=== PATIENT | female | born 1945 | race Caucasian/White ===

== ENCOUNTER → 2017-11-30 | Outpatient (CLI) | payer MEDICARE, BC ==
[~2017-11-30] MED LIST: ALEVE 220MG220 MG PO; CEPHALEXIN500 M1 PO; ULTRAM 50MG TAB50 MG PO; ZESTRIL 10MG10 MG PO; ZOCOR 40MG40 MG PO
[2017-11-30 16:30] LABS: BASO # 0.1 (0.0-0.2); BASO % 0.7 % (0.0-2.0); EOS # 0.2 (0.0-0.7); EOS % 3.1 % (0-4.0); GRAN # 4.4 (1.4-6.5); GRAN % 60.3 % (42.2-75.2); HEMATOCRIT 41.9 % (37.0-47.0); HEMOGLOBIN 13.7 g/dl (12.5-16.0); LYMPH % 27.2 % (20.0-51.0); MEAN CELL VOLUME 86 fl (80.0-100.0); MEAN CORPUSCULAR HEMOGLOBIN 28 pg (27.0-31.0); MEAN CORPUSCULAR HGB CONC 33 g/dl (33.0-37.0); MEAN PLATELET VOLUME 9.3 fl (7.4-10.4); MONO # 0.6 (0.1-0.6); MONO % 8.4 % (1.7-9.3); PLATELET COUNT 235 K/mm3 (130-400); RED BLOOD COUNT 4.86 M/mm3 (4.10-5.30); REDCELL DISTRIBUTION WIDTH-CV 13.9 % (11.5-14.5)
== END ==
LOC: COL.LAB 16:03
PROVIDERS: Internal Medicine
DX: L03.116 Cellulitis of left lower limb (principal); S99.922A Unspecified injury of left foot, initial encounter

== ENCOUNTER → 2018-01-22 | Outpatient (CLI) | payer MEDICARE, BC | LOC: MC.RAD 09:20 | DX: Z12.31 Encounter for screening mammogram for malignant neoplasm of breast (principal); N63.21 Unspecified lump in the left breast, upper outer quadrant ==

== ENCOUNTER → 2018-01-25 | Outpatient (CLI) | payer MEDICARE, BC | LOC: MC.RAD 10:43 | DX: N63.21 Unspecified lump in the left breast, upper outer quadrant (principal) ==

== ENCOUNTER → 2018-01-30 | Outpatient (CLI) | payer MEDICARE, BC | LOC: MC.RAD 09:45 | DX: C50.912 Malignant neoplasm of unspecified site of left female breast (principal) ==

== ENCOUNTER → 2018-02-08 | Outpatient (CLI) | payer MEDICARE, BC | LOC: MC.RAD 09:25 | DX: C50.412 Malignant neoplasm of upper-outer quadrant of left female breast (principal) ==

== ENCOUNTER 2018-02-27 06:44 | Day surgery (SDC) | payer MEDICARE, BC ==
[~2018-02-27] VITALS: Ht 154.9 cm; Wt 105.3 kg
[2018-02-27] VITALS (10 sets, daily range): BP systolic 98–147; BP diastolic 58–77; PULSE 78–93; TEMP 97.8–98.4
[2018-02-27] MEDS ORDERED: MOBIC15 MG PO (08:59)
[2018-02-27] MEDS ORDERED: PRINIVIL10 MG PO (08:59)
[2018-02-27] MEDS ORDERED: ZOCOR 40MG40 MG PO (09:00)
[2018-02-27] MEDS ORDERED: VITAMIN D31000 I1 PO (09:01)
[2018-02-27] MEDS ORDERED: JOINT FLEX PO (09:02)
[2018-02-27] MEDS ORDERED: NATURE'S BLE1000 MCG PO (09:02)
[2018-02-27] MEDS ORDERED: ADVIL200 MG PO (09:03)
[2018-02-27] MEDS ORDERED: B COMPLEX #11 TAB PO (09:03)
[2018-02-27] MEDS ORDERED: TYLENOL 325MG325 MG PO (09:04)
[2018-02-27] MEDS ORDERED: PEPCID 20MG TAB20 MG PO (09:04)
[2018-02-28 04:48] VITALS: BP 114/66; PULSE 76; TEMP 97.6
[2018-02-28 08:24] VITALS: BP 123/66; PULSE 80; TEMP 97.8
[2018-02-28] MEDS ORDERED: NORCO 325 MG-51 TAB PO (11:15)
== END 2018-02-28 11:55 | disposition home or self-care (01) ==
LOC: SDCO 06:44 → SURG 15:50 → SDCO 02-28 11:55
DX: C50.412 Malignant neoplasm of upper-outer quadrant of left female breast (principal); I10 Essential (primary) hypertension; E66.01 Morbid (severe) obesity due to excess calories; Z68.41 Body mass index [BMI] 40.0-44.9, adult; Z79.899 Other long term (current) drug therapy; G89.29 Other chronic pain; K21.9 Gastro-esophageal reflux disease without esophagitis; Z17.1 Estrogen receptor negative status [ER-]; E78.00 Pure hypercholesterolemia, unspecified
CPT/HCPCS: OP; A9541; C1788; J0690; J1100; J1170; J1644; J1885; J2250; J2405; J2704; J2765; J2795; J3010; J7120; Q9968

== ENCOUNTER 2018-03-13 08:51 | Day surgery (SDC) | payer MEDICARE, BC ==
[~2018-03-13] VITALS: Ht 154.9 cm; Wt 106.8 kg
[2018-03-13] VITALS (7 sets, daily range): BP systolic 121–148; BP diastolic 65–77; PULSE 72–78; TEMP 97.2–98.2
[~2018-03-13 08:51] MED LIST changes: +ADVIL200 MG PO; +B COMPLEX #11 TAB PO; +BIOTIN2500 MCG PO; +CENTRUM SILVER1 TAB PO; +MASON NATURAL2000 IU PO; +MOBIC15 MG PO; +NORCO 325 MG-51 TAB PO; +PEPCID 20MG TAB20 MG PO; +PRINIVIL10 MG PO; +TYLENOL 500MG500 MG PO
[2018-03-13] MEDS ORDERED: OSTEO-BI-FLEX 21 TAB PO (09:27)
== END 2018-03-13 14:40 | disposition home or self-care (01) ==
LOC: SDCO 08:51
DX: C50.412 Malignant neoplasm of upper-outer quadrant of left female breast (principal); Z17.1 Estrogen receptor negative status [ER-]; I10 Essential (primary) hypertension; E78.00 Pure hypercholesterolemia, unspecified; K58.0 Irritable bowel syndrome with diarrhea; M19.90 Unspecified osteoarthritis, unspecified site; G89.29 Other chronic pain; K21.9 Gastro-esophageal reflux disease without esophagitis; Z90.49 Acquired absence of other specified parts of digestive tract; Z90.710 Acquired absence of both cervix and uterus; Z90.12 Acquired absence of left breast and nipple; Z88.5 Allergy status to narcotic agent; Z88.6 Allergy status to analgesic agent
CPT/HCPCS: J0690; J1100; J2405; J2704; J3010; J7120

== ENCOUNTER 2018-07-17 15:37 | Emergency (ER) | payer MEDICARE, BC ==
[~2018-07-17] VITALS: Ht 154.9 cm; Wt 93.5 kg
[~2018-07-17 15:37] MED LIST changes: +OSTEO-BI-FLEX 21 TAB PO
[2018-07-17 15:43] VITALS: TEMP 97.8
[2018-07-17 16:24] LABS: HEMOGLOBIN 10.7 g/dl (12.5-16.0); MEAN CELL VOLUME 89 fl (80.0-100.0); MEAN CORPUSCULAR HEMOGLOBIN 29 pg (27.0-31.0); MEAN CORPUSCULAR HGB CONC 33 g/dl (33.0-37.0); MEAN PLATELET VOLUME 10.6 fl (7.4-10.4); PLATELET COUNT 231 K/mm3 (130-400); REDCELL DISTRIBUTION WIDTH-CV 16.8 % (11.5-14.5)
[2018-07-17 16:33] LABS: HEMATOCRIT 32.9 % (37.0-47.0)
[2018-07-17 16:38] LABS: ALANINE AMINOTRANSFERASE 32 U/L (9-52); ALKALINE PHOSPHATASE 108 U/L (50-136); ANION GAP 12 mmol/L (7-16); AST,SGOT 19 U/L (15-37); BILIRUBIN,TOTAL 0.5 mg/dL (0.0-1.0); BLOOD UREA NITROGEN 34 mg/dL (7-17); CALCIUM 8.8 mg/dL (8.4-10.2); CARBON DIOXIDE 25 mmol/L (22-30); CHLORIDE 91 mmol/L (98-107); CREATININE, serum 1.62 mg/dL (0.52-1.25); GLUCOSE 125 mg/dL (74-106); POTASSIUM 4.3 mmol/L (3.4-5.0); SODIUM 128 mmol/L (137-145); TOTAL PROTEIN 5.9 gm/dL (6.4-8.2)
[2018-07-17 16:45] LABS: BAND 26 % (0-10); LYMPHOCYTE 10 % (20.0-51.0); NEUTROPHILS 62 % (42.0-75.2)
[2018-07-17 16:46] LABS: PLATELET ESTIMATE NORMAL (NORMAL); TROPONIN-I < 0.012 ng/mL (0.000-0.035)
[2018-07-17 16:47] LABS: ANISOCYTOSIS 1+
[2018-07-17 16:48] LABS: MICROCYTOSIS 1+
[2018-07-17] MEDS ORDERED: TYLENOL 325MG325 MG PO (16:49)
[2018-07-17] MEDS ORDERED: BALANCE B-1001 TA1 (16:50)
[2018-07-17 16:51] LABS: STOMATOCYTE 1+; TEAR DROP CELLS 1+
[2018-07-17] MEDS ORDERED: NATURE'S BLE1000 MCG PO (16:54)
[2018-07-17] MEDS ORDERED: TUMS500 MG (16:57)
[2018-07-17] MEDS ORDERED: DECADRON 4MG TAB4 MG PO (17:09)
[2018-07-17] MEDS ORDERED: LOMOTIL 0.025 M1 TAB PO (17:10)
[2018-07-17] MEDS ORDERED: PEPCID 20MG TAB20 MG PO (17:11)
[2018-07-17] MEDS ORDERED: MELATONIN3 MG PO (17:12)
[2018-07-17] MEDS ORDERED: ZANTAC 150MG T150 MG PO (17:13)
[2018-07-17] MEDS ORDERED: OSTEO-BI-FLEX 21 TAB PO (17:13)
[2018-07-17] MEDS ORDERED: ZOFRAN8 MG PO (17:13)
[2018-07-17] MEDS ORDERED: TRIAMCINOLONE A15 GM TP (17:14)
[2018-07-17] MEDS ORDERED: AMBIEN 5MG TABLE5 MG PO (17:15)
[2018-07-17] MEDS ORDERED: CLARITIN 1010 MG/TAB PO (17:16)
[2018-07-17 18:00] VITALS: BP 94/58; PULSE 88
[2018-07-17 18:17] LABS: COLLECTION METHOD CLEAN CATCH
[2018-07-17 18:34] LABS: MUCOUS Present /lpf; PH 6 (5-8); URINE APPEARANCE Cloudy; URINE BACTERIA None Seen /hpf; URINE BILIRUBIN Negative (NEGATIVE); URINE BLOOD Negative (NEGATIVE); URINE COLOR Yellow; URINE GLUCOSE Negative (NEGATIVE); URINE KETONE Negative (NEGATIVE); URINE LEUKOCYTE ESTERASE Negative (NEGATIVE); URINE NITRATE Negative (NEGATIVE); URINE PROTEIN(semi-quant) Negative (NEGATIVE); URINE RBC 0-2 /hpf; URINE UROBILINOGEN Negative (NEGATIVE)
== END 2018-07-17 18:26 | disposition short-term general hospital (02) ==
LOC: COL.ER 15:37
PROVIDERS: Emergency Medicine
DX: I95.9 Hypotension, unspecified (principal); R19.7 Diarrhea, unspecified; N19 Unspecified kidney failure; E86.0 Dehydration; I10 Essential (primary) hypertension; E78.00 Pure hypercholesterolemia, unspecified; C50.919 Malignant neoplasm of unspecified site of unspecified female breast
CPT/HCPCS: J1956; J2405; J7030

== ENCOUNTER → 2019-01-31 | Outpatient (CLI) | payer MEDICARE, BC ==
[~2019-01-31] MED LIST changes: +AMBIEN 5MG TABLE5 MG PO; +BALANCE B-1001 TA1; +CLARITIN 1010 MG/TAB PO; +DECADRON 4MG TAB4 MG PO; +ELIQUIS 5MG PO; +FIRVANQ50 MG/1 ML PO; +FLONASE NASAL S16 GM NS; +LOMOTIL 0.025 M1 TAB PO; +MELATONIN3 MG PO; +NATURE'S BLE1000 MCG PO; +TRIAMCINOLONE A15 GM TP; +TUMS500 MG; +TYLENOL 325MG325 MG PO; +ZANTAC 150MG T150 MG PO; +ZOFRAN8 MG PO
== END ==
LOC: MC.RAD 11:14
DX: N60.02 Solitary cyst of left breast (principal); Z98.890 Other specified postprocedural states; Z85.3 Personal history of malignant neoplasm of breast
CPT/HCPCS: G0279

== ENCOUNTER → 2019-02-01 | Outpatient (CLI) | payer MEDICARE, BC | LOC: MC.RAD 11:02 | DX: N60.02 Solitary cyst of left breast (principal); Z98.82 Breast implant status ==

== ENCOUNTER → 2019-07-19 | Outpatient (CLI) | payer MEDICARE, BC | LOC: MC.RAD 10:18 | DX: Z08 Encounter for follow-up examination after completed treatment for malignant neoplasm (principal); Z92.3 Personal history of irradiation; Z85.3 Personal history of malignant neoplasm of breast; Z98.890 Other specified postprocedural states | CPT/HCPCS: G0279 ==

== ENCOUNTER → 2020-02-03 | Outpatient (CLI) | payer MEDICARE, BC | LOC: MC.RAD 09:52 | DX: Z12.31 Encounter for screening mammogram for malignant neoplasm of breast (principal); C50.412 Malignant neoplasm of upper-outer quadrant of left female breast ==

== ENCOUNTER → 2021-03-23 | Outpatient (CLI) | payer MEDICARE, BC | LOC: MC.RAD 02-03 11:30 | DX: Z12.31 Encounter for screening mammogram for malignant neoplasm of breast (principal); C50.412 Malignant neoplasm of upper-outer quadrant of left female breast ==

== ENCOUNTER → 2023-11-21 | Outpatient (CLI) | payer MEDICARE, BC | LOC: MC.RAD 14:00 | DX: Z12.31 Encounter for screening mammogram for malignant neoplasm of breast (principal) ==